=== PATIENT | male | born 1985 | race African-American/Black ===

== ENCOUNTER 2022-12-22 15:45 | Emergency (ER) | payer MEDICAID ==
[2022-12-22 16:20] VITALS: PULSE 96; RESP 18
== END 2022-12-22 17:47 | disposition left against medical advice (07) ==
LOC: ER 15:45
DX: R10.30 Lower abdominal pain, unspecified (principal); Z53.21 Procedure and treatment not carried out due to patient leaving prior to being seen by health care provider
CPT/HCPCS: 99281